=== PATIENT | female | born 1970 | race Caucasian/White ===

== ENCOUNTER 2017-06-27 17:43 | Inpatient (IN) | payer MEDICAID, OTHER ==
[~2017-06-27] VITALS: Ht 180.3 cm; Wt 64.5 kg
[2017-06-27 18:02] LABS: BASOPHILS % (AUTO) 1.1 % (0.0-2.0); HEMATOCRIT 37.3 % (36-46); HEMOGLOBIN 12.5 g/dL (12.0-16.0); LYMPHOCYTES # (AUTO) 2.5 K/uL (1.0-4.8); MEAN CORPUSCULAR HEMOGLOBIN 29.8 pg (26.0-34.0); MEAN CORPUSCULAR HGB CONC 33.6 G/dL (31.0-37.0); MEAN CORPUSCULAR VOLUME 89 fL (80-100); MONOCYTES # (AUTO) 0.9 K/uL (0.1-1.0); MONOCYTES % (AUTO) 9.3 % (2.0-9.0); NEUTROPHILS # (AUTO) 5.7 K/uL (1.8-7.7); NEUTROPHILS % (AUTO) 61.6 % (40.0-70.0); PLATELET COUNT (AUTO) 316 K/uL (150-450); RED CELL DISTRIBUTION WIDTH 14.5 % (11.5-14.5)
[2017-06-27 18:10] LABS: ANION GAP 10 mmol/L (8-16); CALCIUM, TOTAL 9.1 mg/dL (8.8-10.5); CARBON DIOXIDE 26 mmol/L (22-29); CHLORIDE 105 mmol/L (98-107); CREATININE 0.58 mg/dL (0.60-1.30); GLOMERULAR FILTR. RATE CALC > 60 mL/min (>60); GLUCOSE,RANDOM 96 mg/dL (70-110); POTASSIUM 4.3 mmol/L (3.5-5.1); SODIUM SERUM 141 mmol/L (136-145); UREA NITROGEN, BLOOD 13 mg/dL (7-18)
[2017-06-27] MEDS ORDERED: LEVO100 PO (18:11)
[2017-06-27] MEDS ORDERED: PRAZ1 PO (18:11)
[2017-06-27] MEDS ORDERED: NORT25 PO (18:11)
[2017-06-27] MEDS ORDERED: HALOPERIDOL 5 MG TABLET PO PRN (18:15)
[2017-06-27] MEDS ORDERED: ZOLPIDEM TARTRATE 10 MG TABLET PO PRN (18:15)
[2017-06-27] MEDS ORDERED: LORazepam 2 MG TABLET PO PRN (18:15)
[2017-06-27 18:16] LABS: ALANINE AMINOTRANSFERASE 24 U/L (12-78); ALBUMIN 3.8 g/dL (3.4-5.0); ALKALINE PHOSPHATASE 73 U/L (46-116); ASPARTATE AMINOTRANSFERASE 12 U/L (15-37); BILIRUBIN,TOTAL 0.2 mg/dL (0.1-1.0); TOTAL PROTEIN, SERUM 7.6 g/dL (6.4-8.2)
[2017-06-27 18:36] LABS: AMPHET/METH SCREEN,URINE NEGATIVE (NEGATIVE); BARBITURATE SCREEN, URINE NEGATIVE (NEGATIVE); BENZODIAZEPINES SCREEN,URINE NEGATIVE (NEGATIVE); CANNABINOID SCREEN,URINE NEGATIVE (NEGATIVE); COCAINE SCREEN,URINE NEGATIVE (NEGATIVE); METHADONE SCREEN, URINE NEGATIVE (NEGATIVE); OPIATE SCREEN,URINE NEGATIVE (NEGATIVE)
[2017-06-27 18:45] LABS: PHENCYCLIDINE SCREEN,URINE NEGATIVE (NEGATIVE)
[2017-06-28 00:30] VITALS: BP 118/69
[2017-06-28 00:33] VITALS: BP 118/69
[2017-06-28] MEDS ORDERED: INFLUENZA VIRUS VACCINE QVS 2017-18 (3YR+)/PF 60 MCG/0.5 ML SYRINGE IM ONE (03:15)
[2017-06-28 08:14] VITALS: BP 113/67
[2017-06-28] MEDS ORDERED: PETROLATUM,WHITE 71 GM JELLY TP PRN (08:45)
[2017-06-28] MEDS ORDERED: ALBUTEROL SULFATE HFA 90 MCG/PUFF 8 GM INHALER IH PRN (08:45)
[2017-06-28] MEDS ORDERED: ACETAMINOPHEN 325 MG TABLET PO PRN (08:45)
[2017-06-28] MEDS ORDERED: IBUPROFEN 600 MG TABLET PO PRN (08:45)
[2017-06-28] MEDS ORDERED: BACITRACIN 28.4 GM OINTMENT TP PRN (08:45)
[2017-06-28] MEDS ORDERED: CloNIDine HCL 0.1 MG TABLET PO PRN (08:45)
[2017-06-28] MEDS ORDERED: MAGNESIUM HYDROXIDE SUSPENSION 30 ML UDCUP PO PRN (08:45)
[2017-06-28] MEDS ORDERED: MAG HYDROX/AL HYDROX/SIMETH ES 30 ML SUSPENSION UDCUP PO PRN (08:45)
[2017-06-28] MEDS ORDERED: ONDANSETRON HCL 4 MG TABLET PO PRN (08:45)
[2017-06-28] MEDS ORDERED: BENZOCAINE/MENTHOL LOZENGE MM PRN (08:45)
[2017-06-28] MEDS ORDERED: LOPERAMIDE HCL 2 MG CAPSULE PO PRN (08:45)
[2017-06-28] MEDS: PRAZOSIN HCL 1 MG CAPSULE PO SCH (09:00)
[2017-06-28 09:55] LABS: FREE T4 (FREE THYROXINE) 1.04 ng/dL (0.76-1.46); HCG,QUANTITATIVE < 1 mIU/mL (0-6)
[2017-06-28 16:00] VITALS: BP 109/68
[2017-06-28] MEDS: TraZODone HCL 50 MG TABLET PO SCH (20:08)
[2017-06-28] MEDS: NORTRIPTYLINE HCL 25 MG CAPSULE PO SCH (20:08)
[2017-06-28] MEDS: NORTRIPTYLINE HCL 10 MG CAPSULE PO SCH (20:08)
[2017-06-29] MEDS: LEVOTHYROXINE SODIUM 100 MCG TABLET PO SCH (06:40)
[2017-06-29 08:00] VITALS: BP 100/55
[2017-06-29] MEDS: PRAZOSIN HCL 1 MG CAPSULE PO SCH (08:56)
[2017-06-29] MEDS: DULoxetine HCL 30 MG CAPSULE PO SCH ×2 (08:56→16:12)
[2017-06-29] MEDS: ARIPiprazole 5 MG TABLET PO SCH (08:56)
[2017-06-29 16:00] VITALS: BP 111/68
[2017-06-29] MEDS: TraZODone HCL 50 MG TABLET PO SCH (20:34)
[2017-06-29] MEDS: NORTRIPTYLINE HCL 25 MG CAPSULE PO SCH (21:00)
[2017-06-29] MEDS: NORTRIPTYLINE HCL 10 MG CAPSULE PO SCH (21:00)
[2017-06-30] MEDS: LEVOTHYROXINE SODIUM 100 MCG TABLET PO SCH (06:07)
[2017-06-30 06:30] VITALS: BP 102/68
[2017-06-30 08:08] VITALS: BP 111/66
[2017-06-30] MEDS: ARIPiprazole 5 MG TABLET PO SCH (08:31)
[2017-06-30] MEDS: DULoxetine HCL 30 MG CAPSULE PO SCH (08:31)
[2017-06-30] MEDS: PRAZOSIN HCL 1 MG CAPSULE PO SCH (08:31)
[2017-06-30] MEDS ORDERED: TRAZ-144 PO (12:40)
[2017-06-30] MEDS ORDERED: DULO30CA2 PO (12:40)
[2017-06-30] MEDS ORDERED: ARIP5TAB8 PO (12:40)
== END 2017-06-30 13:45 | disposition home or self-care (01) | DRG 751 ==
LOC: EMS 17:46 → B3A 22:09
PROVIDERS: ADMIT Psychiatry & Neurology Psychiatry; ATTEND Psychiatry & Neurology Psychiatry
DX: F33.3 Major depressive disorder, recurrent, severe with psychotic symptoms (principal); R45.851 Suicidal ideations; E03.9 Hypothyroidism, unspecified; F41.1 Generalized anxiety disorder; G47.00 Insomnia, unspecified; G89.29 Other chronic pain; K59.00 Constipation, unspecified; M79.7 Fibromyalgia; Z91.5 Personal history of self-harm; Z79.899 Other long term (current) drug therapy
CPT/HCPCS: 84439; 84443; 99285; G0480